=== PATIENT | female | born 1935 | race Hispanic/Latino ===

== ENCOUNTER → 2018-02-15 | Outpatient (CLI) | payer OTHER | END | disposition home or self-care (01) | LOC: RAH 08:44 | PROVIDERS: ATTEND Family Medicine | DX: Z12.31 Encounter for screening mammogram for malignant neoplasm of breast (principal) | CPT/HCPCS: 77067 ==

== ENCOUNTER 2019-03-13 14:23 | Observation (INO) | payer OTHER ==
[~2019-03-13] VITALS: Ht 165.1 cm; Wt 58.7 kg
[2019-03-13] MEDS ORDERED: ONDANSETRON HCL 4 MG/2 ML VIAL ONE (15:27)
[2019-03-13] MEDS ORDERED: SODIUM CHLORIDE 0.9% 1000ML 1,000 ML IV ONE (15:27)
[2019-03-13] MEDS ORDERED: MORPHINE SULFATE 2 MG/ML 1ML SYG ONE ×2 (15:27→17:29)
[2019-03-13 15:48] LABS: APPEARANCE,URINE Cloudy (CLEAR); BILIRUBIN,URINE Negative (NEGATIVE); COLOR,URINE Yellow (YELLOW); GLUCOSE, URINE (UA) 250 mg/dL (NEGATIVE); KETONES,URINE Negative (NEGATIVE); LEUKOCYTE ESTERASE ,URINE Large (NEGATIVE); NITRATE,URINE Negative (NEGATIVE); OCCULT BLOOD,URINE Negative (NEGATIVE); PROTEIN,URINE Negative (NEGATIVE); UROBILINOGEN,URINE 0.2 mg/dL (0.2-1.0)
[2019-03-13 16:22] LABS: BACTERIA,URINE Moderate /HPF (None Seen)
[2019-03-13 16:42] LABS: BASOPHILS % (AUTO) 1.1 % (0.0-5.0); EOSINOPHILS % (AUTO) 2.8 % (0.0-8.0); HEMATOCRIT 40.8 % (36-48); LYMPHOCYTES % (AUTO) 22.4 % (21.0-51.0); MEAN CORPUSCULAR HEMOGLOBIN 29.8 pg (27.0-33.0); MEAN CORPUSCULAR HGB CONC 33.5 g/dL (32.0-36.0); MONOCYTES % (AUTO) 6.6 % (3.0-13.0); NEUTROPHILS % (AUTO) 67.1 % (40.0-77.0); PLATELET COUNT (AUTO) 316 K/uL (130-400); RED BLOOD CELL COUNT(AUTO) 4.59 MIL/uL (4.00-5.50); RED CELL DISTRIBUTION WIDTH 12.9 % (11.0-15.5); WHITE BLOOD COUNT (AUTO) 7.8 K/uL (4.8-10.8)
[2019-03-13 17:02] LABS: CREATININE 1.1 mg/dL (0.5-1.5); POTASSIUM 3.7 mmol/L (3.5-5.1)
[2019-03-13 17:05] LABS: INR 0.95 (0.85-1.15); PARTIAL THROMBOPLASTIN TIME 26.7 SEC (26.3-35.5)
[2019-03-13 17:07] LABS: ALBUMIN 3.8 g/dL (3.5-5.0); BILIRUBIN,DIRECT 0.1 mg/dL (0.0-0.3); BILIRUBIN,TOTAL 0.2 mg/dL (0.2-1.0); TOTAL PROTEIN, SERUM 7.6 g/dL (6.0-8.3)
[2019-03-13] MEDS ORDERED: IOHEXOL-350 75 ML VIAL IV ONE (17:25)
[2019-03-13] MEDS ORDERED: MORPHINE SULFATE 4 MG/1ML SYG IVP PRN (20:00)
[2019-03-13] MEDS: IBUPROFEN 800 MG TAB PO SCH (20:00)
[2019-03-13] MEDS ORDERED: LIDOCAINE 5% TOPICAL PATCH TP SCH (21:00)
[2019-03-13] MEDS ORDERED: LIDOCAINE 5% TOPICAL PATCH TP ONE (22:00)
[2019-03-14] VITALS: BP 139/61
--- NOTE | 2019-03-14 01:01 | NUR ---
ADMIT Pt admitted from ER,aao x 3.States her chest wall hurts when she takes a deep breath.Encouraged IS.Admission care rendered.
[2019-03-14] MEDS: IBUPROFEN 800 MG TAB PO SCH ×2 (02:00→09:02)
[2019-03-14 04:00] VITALS: BP 107/54
[2019-03-14 05:10] LABS: HEMATOCRIT 34.4 % (36-48); MEAN CORPUSCULAR HEMOGLOBIN 29.6 pg (27.0-33.0); MEAN CORPUSCULAR HGB CONC 33.7 g/dL (32.0-36.0); MEAN CORPUSCULAR VOLUME 87.9 fL (79-99); PLATELET COUNT (AUTO) 267 K/uL (130-400); RED BLOOD CELL COUNT(AUTO) 3.92 MIL/uL (4.00-5.50); RED CELL DISTRIBUTION WIDTH 13.2 % (11.0-15.5); WHITE BLOOD COUNT (AUTO) 8.1 K/uL (4.8-10.8)
[2019-03-14 05:23] LABS: ALBUMIN 2.8 g/dL (3.5-5.0); BILIRUBIN,TOTAL 0.4 mg/dL (0.2-1.0); CREATININE 1.1 mg/dL (0.5-1.5); POTASSIUM 4.3 mmol/L (3.5-5.1); TOTAL PROTEIN, SERUM 5.9 g/dL (6.0-8.3)
--- NOTE | 2019-03-14 06:14 | NUR ---
UP WITH ASSIST Pt ambulated to the bathroom with assist,shu well.
[2019-03-14 08:00] VITALS: BP 125/63
== END 2019-03-14 14:00 | disposition home or self-care (01) ==
LOC: EDH 14:23 → EDHIP 19:41 → 3AH 23:14
PROVIDERS: ADMIT Student in an Organized Health Care Education/Training Program; ATTEND Student in an Organized Health Care Education/Training Program
DX: S20.219A Contusion of unspecified front wall of thorax, initial encounter (principal); E11.9 Type 2 diabetes mellitus without complications; I10 Essential (primary) hypertension; I45.10 Unspecified right bundle-branch block; R94.31 Abnormal electrocardiogram [ECG] [EKG]; Z88.1 Allergy status to other antibiotic agents; Z88.8 Allergy status to other drugs, medicaments and biological substances; V43.52XA Car driver injured in collision with other type car in traffic accident, initial encounter; Y92.410 Unspecified street and highway as the place of occurrence of the external cause; Y93.89 Activity, other specified
CPT/HCPCS: 36415 ×2; 70450; 71045 ×2; 71260; 72125; 74177; 80048; 80053; 80076; 81001; 82550; 82948 ×2; 85025; 85027; 85610; 85730; 93005; 94760; 99284; A4606; G0378 ×18; J2405; J7030; Q9967

== ENCOUNTER → 2019-04-06 | Outpatient (CLI) | payer OTHER | END | disposition home or self-care (01) | LOC: RAH 08:37 | PROVIDERS: ATTEND Family Medicine | DX: Z12.31 Encounter for screening mammogram for malignant neoplasm of breast (principal); Z88.8 Allergy status to other drugs, medicaments and biological substances; Z88.1 Allergy status to other antibiotic agents | CPT/HCPCS: 77067 ==

== ENCOUNTER → 2019-11-02 | Outpatient (CLI) | payer OTHER ==
[~2019-11-02] MED LIST: ASPI-556 PO; CALC1TAB3 PO; CHOL100040 PO; DULO20CA18 PO; GADODIAMIDE 10 MMOL/20 ML VIAL IV ONE; LISI10TA7 PO; RALO60TA13 PO; SITA100T12 PO
== END | disposition home or self-care (01) ==
LOC: RAH 07:51
PROVIDERS: ATTEND Family Medicine
DX: R93.5 Abnormal findings on diagnostic imaging of other abdominal regions, including retroperitoneum (principal); R10.10 Upper abdominal pain, unspecified
CPT/HCPCS: 74183; A9579

== ENCOUNTER → 2021-05-21 | Outpatient (CLI) | payer OTHER ==
[~2021-05-21] MED LIST changes: -GADODIAMIDE 10 MMOL/20 ML VIAL IV ONE; +GADOTERATE MEGLUMINE 10 MMOL/20 ML VIAL IV ONE; +LISI10TA24 PO; -LISI10TA7 PO
== END | disposition home or self-care (01) ==
LOC: RAH 08:54
PROVIDERS: ATTEND Family Medicine
DX: H70.93 Unspecified mastoiditis, bilateral (principal); R41.82 Altered mental status, unspecified
CPT/HCPCS: 70553; A9575

== ENCOUNTER 2023-08-15 07:16 | Emergency (ER) | payer OTHER ==
[~2023-08-15] VITALS: Ht 142.2 cm; Wt 59.0 kg
[~2023-08-15 07:16] MED LIST changes: +CALC-1125 PO; -GADOTERATE MEGLUMINE 10 MMOL/20 ML VIAL IV ONE; +GLIM2TAB30 PO; +MECL-160 PO; +ONDA4TAB10 PO; +vit d3 PO
[2023-08-15 07:52] LABS: BASOPHILS # (AUTO) 0.05 K/uL (0.00-0.20); BASOPHILS % (AUTO) 0.7 % (0.0-5.0); EOSINOPHILS # (AUTO) 0.08 K/uL (0.00-0.70); EOSINOPHILS % (AUTO) 1.1 % (0.0-8.0); HEMATOCRIT 42.3 % (36-48); IMMATURE GRANULOCYTE ABSOLUTE 0.02 K/uL (0-1); LYMPHOCYTES # (AUTO) 1.2 K/uL (1.0-4.8); LYMPHOCYTES % (AUTO) 16.9 % (21.0-51.0); MEAN CORPUSCULAR HEMOGLOBIN 29.3 pg (27.0-33.0); MEAN CORPUSCULAR HGB CONC 34.3 g/dL (32.0-36.0); MEAN CORPUSCULAR VOLUME 85.5 fL (79-99); MONOCYTES # (AUTO) 0.5 K/uL (0.1-1.0); MONOCYTES % (AUTO) 7.5 % (3.0-13.0); NEUTROPHILS # (AUTO) 5.3 K/uL (1.8-7.7); NEUTROPHILS % (AUTO) 73.5 % (40.0-77.0); PLATELET COUNT (AUTO) 375 K/uL (130-400); RED BLOOD CELL COUNT(AUTO) 4.95 MIL/uL (4.00-5.50); WHITE BLOOD COUNT (AUTO) 7.2 K/uL (4.8-10.8)
[2023-08-15] MEDS ORDERED: BISM262O PO (08:05)
[2023-08-15] MEDS ORDERED: LEVO25CA4 PO (08:05)
[2023-08-15] MEDS ORDERED: DONE5TAB33 PO (08:05)
[2023-08-15] MEDS ORDERED: FLUT9.9S16 NS (08:05)
[2023-08-15 08:13] LABS: ALBUMIN 3.8 g/dL (3.5-5.0); BILIRUBIN,TOTAL 0.6 mg/dL (0.2-1.0); CREATININE 1.8 mg/dL (0.5-1.5); POTASSIUM 3.9 mmol/L (3.5-5.1); TOTAL PROTEIN, SERUM 7.8 g/dL (6.0-8.3)
[2023-08-15] MEDS ORDERED: MORPHINE 2 MG SYG IVP ONE (08:30)
[2023-08-15] MEDS: FAMOTIDINE 20MG VIAL IV ONE ×2 (08:43→09:55)
[2023-08-15] MEDS: METOCLOPRAMIDE 10 MG/2 ML VIAL IVP ONE (08:43)
[2023-08-15] MEDS: LACTATED RINGERS 1000ML 1,000 ML IV ONE (09:56)
[2023-08-15 10:28] LABS: APPEARANCE,URINE CLEAR (CLEAR); BILIRUBIN,URINE NEGATIVE (NEGATIVE); COLOR,URINE YELLOW (YELLOW); GLUCOSE, URINE (UA) 150 mg/dL (NEGATIVE); KETONES,URINE NEGATIVE (NEGATIVE); LEUKOCYTE ESTERASE ,URINE 75 Leu/uL (NEGATIVE); NITRATE,URINE NEGATIVE (NEGATIVE); PROTEIN,URINE 50 mg/dL (NEGATIVE); UROBILINOGEN,URINE 0.2 mg/dL (0.2-1.0)
[2023-08-15 10:33] LABS: ADD UA MICROSCOPIC YES
[2023-08-15 10:35] LABS: MUCUS,URINE RARE LPF (None Seen); SQUAMOUS EPITHELIAL CELL,UR RARE /HPF (0-2)
[2023-08-15 11:35] VITALS: BP 118/60; PULSE 66; RESP 16; O2SAT 99
[2023-08-15] MEDS ORDERED: PHEN-847 PO (12:42)
[2023-08-15] MEDS ORDERED: CEPH500T PO (12:42)
[2023-08-15] MEDS ORDERED: CEFTRIAXONE 2GM VIAL IVPB ONE (13:00)
== END 2023-08-15 13:00 | disposition home or self-care (01) ==
LOC: EDH 07:16
DX: N39.0 Urinary tract infection, site not specified (principal); E11.9 Type 2 diabetes mellitus without complications; Z79.82 Long term (current) use of aspirin; Z79.84 Long term (current) use of oral hypoglycemic drugs; Z79.899 Other long term (current) drug therapy; Z88.1 Allergy status to other antibiotic agents; Z88.8 Allergy status to other drugs, medicaments and biological substances
CPT/HCPCS: 99285; 74176; 96374; 96361; 71045; 96375; 84484; 80053; 83690; 85025; 87077 ×2; 87088; 87186 ×2; 81001; 36415; 93005; J3490; J2765; J2270